=== PATIENT | female | born 1960 ===

== ENCOUNTER 2017-05-17 09:51 | Day surgery (SDC) | payer MEDICAID ==
[2017-05-12 11:10] VITALS: BMI 28.6
[2017-05-17] MEDS ORDERED: Maxitrol Opht Susp ONE (12:29)
[2017-05-17] MEDS ORDERED: BSS 15 ML 30 ML IR ONE (12:30)
[2017-05-17] MEDS ORDERED: Lidocaine 2% w Epi 1:100,000 Inj IJ ONE (12:30)
[2017-05-17] MEDS ORDERED: BSS 15 ML 15 ML IR ONE (12:30)
[2017-05-17] MEDS ORDERED: Povidone Iodine Topical 10% Sol ONE (12:30)
[2017-05-17] MEDS ORDERED: Povidone Iodine 5% Opht SOLUTION ONE (12:30)
[2017-05-17] MEDS ORDERED: Hyaluronidase 200 UNITS/ML VIAL ONE (12:30)
[2017-05-17] MEDS ORDERED: Propofol 10 mg/ml Inj (20 ML) ONE (13:57)
[2017-05-17] MEDS ORDERED: Midazolam 2 MG/2 ML VIAL ONE (13:57)
[2017-05-17] MEDS ORDERED: Tetracaine 0.5% Ophth 2 ML BOTTLE OD ONE (14:15)
[2017-05-17 15:49] VITALS: RESP 18
[2017-05-17 15:52] VITALS: O2SAT 99
[2017-05-17 15:56] VITALS: BP 108/70; PULSE 88; TEMP 97.5
--- NOTE | 2017-05-23 12:36 | OP ---
PROCEDURE DATE : 05/17/17 SURGEON: DARREN CÁRDENAS MD ANESTHESIOLOGIST: ASIF COATS MD ANESTHESIA: LOCAL / IV SEDATION PREOPERATIVE DIAGNOSIS: PTERYGIUM. POSTOPERATIVE DIAGNOSIS: PTERYGIUM. OPERATION: LAMELLAR KERATOSCLERECTOMY WITH CONJUNCTIVOPLASTY AND INTRAOPERATIVE APPLICATION OF MITOMYCIN-C. PREPARATION AND PROCEDURE: After the patient was sedated intravenously, patient was prepped and draped in the usual manner for sterile ophthalmic surgery.Through microsurgical control, an adult wire lid speculum was placed within the lids of the operative eye. Under magnification, 1% Xylocaine with Epinephrine was injected within the substance of the conjunctiva nasally in order to anesthetize and to balloon the nasal conjunctiva posterior to the head of the pterygium. Using a #15 Bard-Adams blade, the head of the pterygium was carefully dissected in a lamellar fashion down to the base of the scar tissue at the level of the corneal stroma. After this was reflected toward the limbus , sharp-tipped Vandana scissors were utilized inferiorly and superiorly at the surgical sulcus in order to continue to dissect the head and body of the pterygium away from the limbus. The superficial conjunctiva posterior to the pterygium was incised in a curvilinear fashion from the inferior to the superior aspect. The head and body of the pterygium were sharply and bluntly dissected and then excised in total. Hemostasis was obtained using a bipolar cautery. A fresh #15 Uhqh-Oatxmz-Tfwmm was utilized to smooth out the corneal and scleral surface to allow proper epithelialization. At this time, Mitomycin- C applied on Weck-lazaro sponge and then applied to the surgical sulcus and left in place for exactly two minutes. At the termination of the two minutes, the area was copiously irrigated with balanced salt solution. After the area was examined for hemostasis, which was found to be satisfactory, the conjunctiva was reanastomosed utilizing interrupted #8-0 Vicryl sutures. At the termination , the eye was irrigated and the conjunctiva was closed and a conjunctivoplasty was performed with interrupted #8-0 Vicryl suture. TobraDex drops were applied to the eye. POSTOPERATIVE CONDITION: The patient was brought to the post-anesthesia recovery with stable vital signs. DARREN CÁRDENAS MD [facility]ITALChriss
== END 2017-05-17 16:24 | disposition home or self-care (01) ==
LOC: H.OPSURG 09:51
PROVIDERS: ATTEND Ophthalmology
DX: H11.001 Unspecified pterygium of right eye (principal); E03.9 Hypothyroidism, unspecified; G51.0 Bell's palsy
CPT/HCPCS: 68320; J2250; J2704; J3010; J3470; J9280

== ENCOUNTER 2017-06-20 10:55 | Day surgery (SDC) | payer MEDICAID ==
[2017-06-20 12:33] VITALS: BMI 28.3
[2017-06-20] MEDS ORDERED: Bupivacaine HCl 0.25% PF (10 ml) Inj ONE ×2 (12:54→13:49)
[2017-06-20] MEDS ORDERED: Lidocaine 1% Inj (20ml) ONE (12:54)
[2017-06-20] MEDS ORDERED: methylPREDNISolone Depo 80 mg/ml Inj ONE (12:54)
[2017-06-20] MEDS ORDERED: Iohexol 300 10 ML ONE (12:55)
[2017-06-20] MEDS ORDERED: Propofol 10 mg/ml Inj (20 ML) ONE (13:28)
[2017-06-20] MEDS ORDERED: Midazolam 2 MG/2 ML VIAL ONE (13:28)
[2017-06-20] MEDS ORDERED: Lactated Ringer's 1,000 ML IV ONE (13:28)
[2017-06-20] MEDS ORDERED: Lidocaine 1% Inj (20ml) IJ ONE (13:32)
[2017-06-20] MEDS ORDERED: HYDROmorphone 0.5 mg/0.5 ml ISec IVP PRN (13:45)
[2017-06-20 14:09] VITALS: TEMP 98.4
[2017-06-20 15:01] VITALS: BP 110/70; PULSE 80; RESP 18; O2SAT 98
--- NOTE | 2017-06-20 21:06 | OP ---
PROCEDURE DATE: 06/20/2017 PREOPERATIVE DIAGNOSIS: Sacroiliitis. POSTOPERATIVE DIAGNOSIS: Sacroiliitis. PROCEDURE: Bilateral sacroiliac joint injection under fluoroscopic guidance. SURGEON: Montrell Maciel MD ANESTHESIOLOGIST: Dr. Luna. ESTIMATED BLOOD LOSS: None. COMPLICATIONS: None. DESCRIPTION OF PROCEDURE: After informed consent was obtained, the patient was brought to the OR and placed on the table in a prone position. All pressure points were padded, sedation was administered by Anesthesia. The lumbosacral spine was then prepped with iodine x3 and draped in normal sterile fashion. 4 mL of 1% lidocaine was used to create a skin wheal using a 25-gauge needle. X-ray was used in AP view to identify the right sacroiliac joint. The 22-gauge 3-1/2-inch spinal needle was placed to bony contact at inferomedial edge of the right sacroiliac joint. After negative aspiration for heme or CSF, 2 mL of 0.25% preservative-free Marcaine and Depo-Medrol was easily instilled. There was no paresthesia during placement of the needle. After negative aspiration for heme or CSF, this procedure was repeated for the middle and superior borders to the right sacroiliac joint and lower, middle, and superior borders of the left sacroiliac joint. There was no paresthesia during the case. The patient was brought to stage III recovery room with bilateral lower extremity motor and sensory intact. Montrell Maciel MD MTDD
--- NOTE | 2017-06-23 13:58 | RAD ---
PROCEDURE: Intraoperative Fluoroscopy. HISTORY: PAIN MANAGEMENT FINDINGS: Fluoroscopic assistance was provided for pain management. Please refer to the operative report from KATRINA Hahn. 30.9 seconds of fluoroscopy time was utilized with a cumulative radiation dose DLP 6.41 mGy.
== END 2017-06-20 16:00 | disposition home or self-care (01) ==
LOC: H.OPSURG 10:55
PROVIDERS: ATTEND Anesthesiology Pain Medicine
DX: M46.1 Sacroiliitis, not elsewhere classified (principal); E03.9 Hypothyroidism, unspecified
CPT/HCPCS: 20610; J1040; J2250; J2704; J3010; J7120; Q9967

== ENCOUNTER 2018-05-05 05:58 | Day surgery (SDC) | payer MEDICAID ==
[2018-04-24 12:21] VITALS: BMI 27.6
[2018-05-05] MEDS ORDERED: Lactated Ringer's 1,000 ML IV ONE (06:51)
[2018-05-05] MEDS: Lidocaine 1% Inj (20ml) ONE ×2 (07:49→08:07)
[2018-05-05] MEDS: methylPREDNISolone Depo 80 mg/ml Inj ONE ×3 (07:50→08:13)
[2018-05-05] MEDS: Bupivacaine HCl 0.5% PF (30 ml) Inj ONE ×3 (07:50→08:13)
[2018-05-05] MEDS ORDERED: Midazolam 2 MG/2 ML VIAL ONE (08:02)
[2018-05-05] MEDS ORDERED: Lidocaine 2% MPF (5 ml) Inj ONE (08:02)
[2018-05-05] MEDS ORDERED: Propofol 10 mg/ml Inj (20 ML) ONE (08:02)
[2018-05-05 09:52] VITALS: RESP 18
[2018-05-05 10:27] VITALS: BP 110/69; PULSE 76; TEMP 98.2; O2SAT 99
--- NOTE | 2018-05-05 15:08 | RAD ---
Date of service: 05/05/2018 PROCEDURE: Fluoroscopy up to 1 hr. HISTORY: PAIN MANAGEMENT COMPARISON: None TECHNIQUE: Standard protocol for this study/examination. FINDINGS: Total fluoroscopic time (continuous mode) utilized during the procedure 23.8 seconds. Total exam DLP: 6.15 (mGy). IMPRESSION: Less than 1 hr fluoroscopic assistance provided during performance of the procedure.
--- NOTE | 2018-05-05 20:13 | OP ---
PROCEDURE DATE: 05/05/2018 PREOPERATIVE DIAGNOSIS: Lumbar spondylosis. POSTOPERATIVE DIAGNOSIS: Lumbar spondylosis. PROCEDURE: Bilateral L3, L4 and L5 medial branch nerve block. ANESTHESIOLOGIST: Anel Luna MD SURGEON: Jamir Tovar MD ANESTHESIA TYPE: Monitored anesthesia care. COMPLICATIONS: None. SPECIMENS: None. DESCRIPTION OF PROCEDURE: Procedure is as follows. After we had a discussion of the procedure with the patient including its risks, benefits, alternatives, outcome data, possibility of no effect or increased pain, the patient consented to the procedure. She denies any recent infection, bleeding tendencies, or being on anticoagulants. Decision was then made to proceed to the OR. The patient was placed on a fluoroscopy table in a prone position with two pillows underneath her abdomen. The back was prepped and draped in the usual sterile fashion, and a sterile technique was adhered to during the entire procedure. The L3, L4, and L5 medial branch nerves were located at the intersection of the superior articular process and the transverse process of the L4 and L5 pedicle along with the sacral ala. The above three areas were visualized on the right side by changing the fluoroscopy towards the right at approximately 15 degrees. The skin overlying the three above target areas were then infiltrated with 1% lidocaine using 25-gauge needle. Subsequently, a 22-gauge 3-1/2-inch spinal needle was incrementally advanced under fluoroscopic guidance until tip of the needle made bony contact with all three target areas. After satisfactory position of all three needles, approximately 3 mL of 0.5% Marcaine and Depo-Medrol mixture was injected. The needle was removed. The same exact procedure was performed on the contralateral left side using same medications and technique. At the end of the case, the patient's back was cleaned, and a dry bandage was applied. The patient was then transferred to the recovery area in good condition without any signs of DEPUT[employer] SHER[employer]IEF toxicity or any neurological deficit. She will be following up in the office in approximately two to four weeks. Jamir Tovar MD
== END 2018-05-05 10:38 | disposition home or self-care (01) ==
LOC: H.OPSURG 05:58
PROVIDERS: ATTEND Anesthesiology
DX: M47.816 Spondylosis without myelopathy or radiculopathy, lumbar region (principal); M54.40 Lumbago with sciatica, unspecified side; E03.9 Hypothyroidism, unspecified
CPT/HCPCS: 64520; J1040; J2250; J2704; J7120